=== PATIENT | female | born 1990 | race American Indian/Alaskan Native ===

== ENCOUNTER 2018-10-22 10:10 | Observation (INO) | payer MEDICAID ==
[2018-10-22] MEDS ORDERED: NACL 0.9% 1000 ML 1,000 ML IV SCH (17:00)
[2018-10-22 18:05] LABS: Eosinophils % (Auto) 0.3 % (0.0-4.3); Hemoglobin 6.1 gm/dl (10.1-14.3); Lymphocytes # (Auto) 2.2 K/mm3 (1.2-5.4); Lymphocytes % (Auto) 22.8 % (13.4-35.0); Mean Corpuscular HGB Conc 31 % (30-34); Monocytes # (Auto) 0.8 K/mm3 (0.0-0.8); Monocytes % (Auto) 7.9 % (0.0-7.3); Platelet Count 352 K/mm3 (140-440); Red Blood Count 3.16 M/mm3 (3.65-5.03); Red Cell Distribution Width 19.4 % (13.2-15.2)
[2018-10-22 18:17] LABS: Hematocrit 19.7 % (30.3-42.9); Mean Corpuscular Volume 62 fl (79-97)
[2018-10-22] MEDS ORDERED: NACL 0.9% 500 ML 500 ML IV SCH (18:19)
[2018-10-22] MEDS ORDERED: PEPCID PO ONE (22:00)
--- NOTE | 2018-10-22 22:19 | History and Physical Report ---
History of Present Illness Date of examination: 10/22/18 Date of admission: 10/22/18 17:12 Chief complaint: Sent from office for direct admit. History of present illness: 27 year old who was sent from office for direct admit due to need for blood tranfusion (severe anemia). Patient denies dizziness or lightheadedness; had an episode of dizziness last week but feels fine now. Patient denies chest pain or SOB. Patient reports active movement. She denies contractions, LOF, or VB. Patient receives care at [facility] and records are available. LMP 04/04/18. EDC 01/09/19. significant for the following: severe anemia, history of previous section, HSV 2 positive serology, abnormal pap. labs are as follows: O+, antibody screen negative, pap LSIL, rubella immune, RPR nonreactive, hepatitis B surface antigen negative, HIV negative, HSV 2 positive, varicella immune, gonorrhea negative, chlamydia negative, trichomonas negative, tetra screen negative, diabetes screen 110. 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 denies: chlamydia, gonorrhea, hepatitis B, hepatitis C, herpes, HIV, syphilis Family/Genetic History: hypertension, other (family history of autism) Social history: lives with family, full code, AND/DNR-allow natural . denies: smoking, alcohol abuse, prescription drug abuse, IV drug use - Obstetrical History Expected Date of Delivery: 01/09/19 Actual Gestation: 28 Week(s) 6 Day(s) : 3 Para: 2 Hx # Term Pregnancies: 2 Number of Pregnancies: 0 Spontaneous Abortions: 0 Induced : 0 Number of Living Children: 2 Medications and Allergies Allergies Allergy/AdvReac Type Severity Reaction Status Date / Time No Known Allergies Allergy Unverified 10/22/18 15:58 Home Medications Medication Instructions Recorded Confirmed Last Taken Type No Known Home Medications [No 10/22/18 10/22/18 Unknown History Reported Home Medications] Active Meds: Active Medications Sodium Chloride (Nacl 0.9% 1000 Ml) 1,000 mls @ 125 mls/hr IV DIRECT ERIC Sodium Chloride (Nacl 0.9% 500 Ml) 500 mls @ 0 mls/hr IV ONCE ERIC Stop: 10/23/18 06:00 Review of Systems Constitutional: no weakness Cardiovascular: no syncope, no lightheadedness, no shortness of breath Respiratory: no cough, no shortness of breath Gastrointestinal: no nausea, no vomiting Genitourinary: no vaginal bleeding, no leakage of fluid Neurological: no weakness - Vital Signs Vital signs: Vital Signs Temp 97.8 F 10/22/18 17:39 Temp Pulse Resp BP Pulse Ox 98.2 F 94 H 17 117/67 10/22/18 20:54 10/22/18 22:04 10/22/18 20:54 10/22/18 22:04 - Physical Exam Abdomen: Positive: normal appearance, soft. Negative: distention, tenderness, guarding, rigidity Uterus: Positive: normal size. Negative: tender - Obstetrical FHR: category 1 FHR comments: AGA Uterine Contraction Monitor Mode: External Uterine Contraction Pattern: Absent Results Result Diagrams: 10/22/18 17:50 Abnormal lab results 10/22/18 10/22/18 Range/Units 17:50 17:50 RBC 3.16 L (3.65-5.03) M/mm3 Hgb 6.1 L (10.1-14.3) gm/dl Hct 19.7 L* (30.3-42.9) % MCV 62 L (79-97) fl MCH 20 L (28-32) pg RDW 19.4 H (13.2-15.2) % [place] % (Auto) 7.9 H (0.0-7.3) % Crossmatch See Detail All other labs normal. Assessment and Plan A: at 28 weeks, 6 days. Severe anemia. P: Admit. Transfuse PRBCs per MD order.
[2018-10-23 06:51] LABS: Hematocrit 22.1 % (30.3-42.9); Hemoglobin 6.9 gm/dl (10.1-14.3)
[2018-10-23] MEDS ORDERED: NACL 0.9% 500 ML 500 ML IV NR (08:00)
[2018-10-23 13:17] VITALS: BP 97/57
--- NOTE | 2018-10-23 13:39 | Progress Note ---
Assessment and Plan - Patient Problems (1) 22 weeks gestation of Current Visit: Yes Status: Acute (2) Symptomatic anemia Current Visit: Yes Status: Acute Plan to address problem: Patient is S/P 2 units PRBCs. Will repeat CBC at 3:30 PM. If >8, will discharge home today. Subjective - Subjective Interval history: Patient is a 27 year old , LMP 04/04/18, EDC 01/09/19 at 28 weeks and 6 days gestation who was sent from office for direct admit due to need for blood transfusion due to severe anemia. Patient denies dizziness or lightheadedness; had an episode of dizziness last week but feels fine now. Patient denies chest pain or SOB. Patient reports active movement. She denies contractions, LOF, or VB. Patient receives care at [facility] and records are available. . significant for the following: severe anemia, history of previous section, HSV 2 positive serology, abnormal pap. labs are as follows: O+, antibody screen negative, pap LSIL, rubella immune, RPR nonreactive, hepatitis B surface antigen negative, HIV negative, HSV 2 positive, varicella immune, gonorrhea negative, chlamydia negative, trichomonas negative, tetra screen negative, diabetes screen 110. Objective - Vital Signs Vital Signs: Vital Signs - 12hr 10/23/18 10/23/18 10/23/18 01:34 01:49 02:04 Temperature Pulse Rate 82 76 78 Respiratory Rate Blood Pressure 88/54 96/56 101/55 O2 Sat by Pulse Oximetry 10/23/18 10/23/18 10/23/18 02:19 02:34 07:52 Temperature Pulse Rate 69 72 85 Respiratory Rate Blood Pressure 97/52 94/50 104/60 O2 Sat by Pulse Oximetry 10/23/18 10/23/18 10/23/18 08:00 11:02 11:07 Temperature 97.8 F Pulse Rate 91 H 94 H Respiratory 16 Rate Blood Pressure 110/58 103/56 O2 Sat by Pulse 98 98 Oximetry 10/23/18 10/23/18 10/23/18 11:20 11:21 11:22 Temperature 97.5 F L Pulse Rate 106 H 103 H 92 H Respiratory 16 Rate Blood Pressure 105/56 107/55 O2 Sat by Pulse 99 98 Oximetry 10/23/18 10/23/18 10/23/18 11:25 11:27 11:29 Temperature Pulse Rate 94 H 98 H 86 Respiratory Rate Blood Pressure 109/57 104/60 O2 Sat by Pulse 99 Oximetry 10/23/18 10/23/18 10/23/18 11:30 11:32 11:35 Temperature 97.6 F Pulse Rate 94 H 93 H 94 H Respiratory 18 Rate Blood Pressure 104/56 104/56 105/56 O2 Sat by Pulse 98 98 Oximetry 10/23/18 10/23/18 10/23/18 11:36 11:37 11:40 Temperature 97.6 F 97.7 F Pulse Rate 92 H 96 H 94 H Respiratory 26 H 18 Rate Blood Pressure 105/56 124/58 124/58 O2 Sat by Pulse 98 98 Oximetry 10/23/18 10/23/18 10/23/18 11:42 11:45 11:47 Temperature 97.8 F Pulse Rate 92 H 92 H 88 Respiratory 17 Rate Blood Pressure 110/58 110/58 106/60 O2 Sat by Pulse 98 Oximetry 10/23/18 10/23/18 10/23/18 11:50 11:52 11:55 Temperature Pulse Rate 93 H 90 96 H Respiratory Rate Blood Pressure 109/62 O2 Sat by Pulse 98 97 Oximetry 10/23/18 10/23/18 10/23/18 11:57 12:00 12:02 Temperature 97.8 F Pulse Rate 103 H 98 H 94 H Respiratory 17 Rate Blood Pressure 112/60 112/60 108/58 O2 Sat by Pulse 98 Oximetry 10/23/18 10/23/18 10/23/18 12:05 12:07 12:10 Temperature Pulse Rate 93 H 103 H 97 H Respiratory Rate Blood Pressure 104/61 O2 Sat by Pulse 97 98 Oximetry 10/23/18 10/23/18 10/23/18 12:12 12:15 12:20 Temperature 97.8 F Pulse Rate 92 H 86 97 H Respiratory 18 Rate Blood Pressure 109/62 108/62 O2 Sat by Pulse 98 97 Oximetry 10/23/18 10/23/18 10/23/18 12:25 12:30 12:35 Temperature 97.8 F Pulse Rate 94 H 90 97 H Respiratory 18 Rate Blood Pressure 117/65 O2 Sat by Pulse 98 98 98 Oximetry 10/23/18 10/23/18 10/23/18 12:40 12:45 12:50 Temperature Pulse Rate 90 79 93 H Respiratory Rate Blood Pressure 111/61 O2 Sat by Pulse 98 99 98 Oximetry 10/23/18 10/23/18 10/23/18 12:55 13:00 13:05 Temperature Pulse Rate 88 88 82 Respiratory Rate Blood Pressure 110/57 O2 Sat by Pulse 97 97 97 Oximetry 10/23/18 10/23/18 10/23/18 13:10 13:15 13:20 Temperature Pulse Rate 84 106 H 82 Respiratory Rate Blood Pressure 97/57 O2 Sat by Pulse 97 97 97 Oximetry 10/23/18 13:25 Temperature Pulse Rate 74 Respiratory Rate Blood Pressure O2 Sat by Pulse 99 Oximetry - Exam Cardiovascular: Normal S1, Normal S2 Lungs: Clear to auscultation Vulva: both: normal FHR: category 1 Uterine Contraction Monitor Mode: External Deep Tendon Reflex Grade: Normal +2 - Labs Labs: Abnormal Labs 10/22/18 10/22/18 10/23/18 17:50 17:50 06:41 RBC 3.16 L Hgb 6.1 L 6.9 L Hct 19.7 L* 22.1 L MCV 62 L MCH 20 L RDW 19.4 H Nash % (Auto) 7.9 H Crossmatch See Detail Laboratory Results - last 24 hr 10/22/18 10/22/18 10/23/18 17:50 17:50 06:41 WBC 9.8 RBC 3.16 L Hgb 6.1 L 6.9 L Hct 19.7 L* 22.1 L MCV 62 L MCH 20 L MCHC 31 RDW 19.4 H Plt Count 352 Lymph % (Auto) 22.8 Nash % (Auto) 7.9 H Eos % (Auto) 0.3 Baso % (Auto) 0.0 Lymph # 2.2 Nash # 0.8 Eos # 0.0 Baso # 0.0 Seg Neutrophils % 69.0 Seg Neutrophils # 6.7 Blood Type O POSITIVE Antibody Screen Negative Crossmatch See Detail - Results US- obstetric: report reviewed
--- NOTE | 2018-10-23 13:54 | Discharge Summary ---
Providers - Providers Date of Admission: 10/22/18 17:12 Date of discharge: 10/23/18 Attending physician: MICHELLE COPELAND MD Primary care physician: SPEEDOMETER MECHANIC Hospitalization Reason for admission: other (Symptomatic anemia) Delivery: other (Blood transfusion) Discharge diagnosis: other (symptomatic anemia, S/P blood transfusion.) Hospital course: Patient is a 27 year old , LMP 04/04/18, EDC 01/09/19 at 28 weeks and 6 days gestation who was sent from office for direct admit due to need for blood transfusion due to severe anemia. Patient denies dizziness or lightheadedness; had an episode of dizziness last week but feels fine now. Patient denies chest pain or SOB. Patient reports active movement. She denies contractions, LOF, or VB. Patient receives care at [facility] and records are available. . significant for the following: severe anemia, history of previous section, HSV 2 positive serology, abnormal pap. labs are as follows: O+, antibody screen negative, pap LSIL, rubella immune, RPR nonreactive, hepatitis B surface antigen negative, HIV negative, HSV 2 positive, varicella immune, gonorrhea negative, chlamydia negative, trichomonas negative, tetra screen negative, diabetes screen 110. Condition at discharge: Stable Disposition: DC-01 TO HOME OR SELFCARE - Discharge Diagnoses (1) 22 weeks gestation of Status: Acute (2) Symptomatic anemia Status: Acute Plan - Provider Discharge Summary Activity: routine Diet: routine Instructions: routine Additional instructions: [] Smoking cessation referral if applicable(refer to patient education folder for contact #) [] Refer to [facility] Booklet Call your doctor immediately for: * Fever > 100.5 * Heavy vaginal bleeding ( >1 pad per hour) * Severe persistent headache * Shortness of breath * Reddened, hot, painful area to leg or breast * Drainage or odor from incision. * Keep incision clean and dry at all times and follow doctor's instructions regarding bathing/showering - Follow up plan Follow up: PRIMARY CARE, [Primary Care Provider] - 7 Days
[2018-10-23 15:27] LABS: Hematocrit 27.8 % (30.3-42.9); Hemoglobin 8.7 gm/dl (10.1-14.3); Mean Corpuscular HGB Conc 31 % (30-34); Platelet Count 308 K/mm3 (140-440); Red Blood Count 4.01 M/mm3 (3.65-5.03)
[2018-10-23 15:32] LABS: Mean Corpuscular Volume 69 fl (79-97); Red Cell Distribution Width 24.4 % (13.2-15.2)
[2018-10-23] MEDS ORDERED: PEPCID PO ONE (17:00)
== END 2018-10-23 17:00 | disposition home or self-care (01) ==
LOC: 3A 10:10 → UNDOADMOB 10:10 → LD 17:12
PROVIDERS: ADMIT Obstetrics & Gynecology; ATTEND Obstetrics & Gynecology
DX: O99.013 Anemia complicating pregnancy, third trimester (principal); Z3A.28 28 weeks gestation of pregnancy
CPT/HCPCS: 36415; 85014; 85018; 85025; 85027; 86850; 86900; 86901; 86920; G0378; G0379; J7040; P9016; 36430

== ENCOUNTER 2019-01-03 08:55 | Inpatient (IN) | payer MEDICAID ==
[2019-01-03] MEDS ORDERED: BICITRA ORAL LIQD 30ML PO NR (09:30)
[2019-01-03] MEDS ORDERED: FAMOTIDINE 20 MG/2 ML INJ IV NR (09:30)
[2019-01-03] MEDS ORDERED: METOCLOPRAMIDE 10 MG/2 ML INJ IV NR (09:30)
[2019-01-03] MEDS ORDERED: LACTATED RINGERS 2,000 ML ONE (09:41)
[2019-01-03] MEDS ORDERED: LACTATED RINGERS 1,000 ML IV SCH (10:00)
[2019-01-03] MEDS ORDERED: ceFAZolin/Water 2 GM/20 ML 2 GM/20 ML SYRINGE IV NR (10:00)
[2019-01-03] MEDS ORDERED: SODIUM CHLORIDE 0.9% 500 ML 500 ML IV NR (10:00)
[2019-01-03] MEDS ORDERED: OXYTOCIN 20 UNIT/1000ML DRIP 20 UNITS/1,000 ML BAG IV SCH ×2 (10:00→18:00)
[2019-01-03 10:16] LABS: Basophils % (Auto) 0.3 % (0.0-1.8); Eosinophils % (Auto) 0.4 % (0.0-4.3); Hematocrit 30.4 % (30.3-42.9); Hemoglobin 9.4 gm/dl (10.1-14.3); Lymphocytes # (Auto) 1.9 K/mm3 (1.2-5.4); Lymphocytes % (Auto) 19.4 % (13.4-35.0); Mean Corpuscular HGB Conc 31 % (30-34); Monocytes # (Auto) 1.1 K/mm3 (0.0-0.8); Monocytes % (Auto) 10.6 % (0.0-7.3); Platelet Count 352 K/mm3 (140-440); Red Blood Count 4.47 M/mm3 (3.65-5.03)
[2019-01-03 10:21] LABS: Mean Corpuscular Volume 68 fl (79-97); Red Cell Distribution Width 21.3 % (13.2-15.2)
--- NOTE | 2019-01-03 11:58 | History and Physical Report ---
History of Present Illness Date of examination: 01/03/19 Date of admission: 01/03/19 08:55 Chief complaint: Elective Repeat Section, declines Bilateral Tubal Ligation History of present illness: 28yo [id number] at 39+2/7 weeks here for repat section. She is without complaint. GFM,no LOF, no VB. 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 Family/Genetic History: none Social history: single, lives with family - Obstetrical History Expected Date of Delivery: 01/09/19 Actual Gestation: 39 Week(s) 1 Day(s) : 3 Para: 2 Medications and Allergies Allergies Allergy/AdvReac Type Severity Reaction Status Date / Time No Known Allergies Allergy Verified 01/03/19 09:26 Home Medications Medication Instructions Recorded Confirmed Last Taken Type No Known Home Medications [No 10/22/18 01/03/19 Unknown History Reported Home Medications] Active Meds: Active Medications Citric Acid/Sodium Citrate (Bicitra) 30 ml PO ONCE NR Stop: 01/03/19 16:00 Famotidine (Pepcid) 20 mg IV ONCE NR Stop: 01/03/19 16:00 Oxytocin/Sodium Chloride (Pitocin/Ns 20 Unit/1000ml Drip) 20 units in 1,000 mls @ 0 mls/hr IV TITR ERIC Lactated Ringer's (Lactated Ringers) 1,000 mls @ 2,250 mls/hr IV PREOP ERIC Stop: 01/04/19 10:27 Last Admin: 01/03/19 09:40 Dose: 2,250 mls/hr Documented by: Cefazolin Sodium (Ancef/Sterile Water 2 Gm/20 Ml) 2 gm in 20 mls @ 80 mls/hr IV PREOP NR; Protocol Stop: 01/03/19 16:00 Sodium Chloride (Nacl 0.9% 500 Ml) 500 mls @ 0 mls/hr IV ONCE NR Stop: 01/03/19 17:00 Metoclopramide HCl (Reglan) 10 mg IV ONCE NR Stop: 01/03/19 16:00 Review of Systems All systems: negative (good movement, occasional contractions, no loss of fluid or vaginal bleeding) - Vital Signs Vital signs: Vital Signs Pulse Pulse Ox 76 100 01/03/19 09:12 01/03/19 09:12 Temp Pulse Resp BP Pulse Ox 98 F 94 H 16 129/72 100 01/03/19 11:28 01/03/19 10:45 01/03/19 11:28 01/03/19 10:27 01/03/19 10:45 - Physical Exam Breasts: Positive: deferred Cardiovascular: Regular rate Lungs: Positive: Clear to auscultation Abdomen: Positive: normal appearance, normal bowel sounds Genitourinary (Female): Positive: normal external genitalia, normal perenium Cervix: Positive: other (patient declined) Uterus: Positive: normal size Extremities: Positive: normal Deep Tendon Reflex Grade: Normal +2 - Obstetrical FHR: category 1 ([id number] baseline, +ve accelerations, moderate variability) Results Result Diagrams: 01/03/19 09:40 Abnormal lab results 01/03/19 01/03/19 Range/Units 09:40 09:40 Hgb 9.4 L (10.1-14.3) gm/dl MCV 68 L (79-97) fl MCH 21 L (28-32) pg RDW 21.3 H (13.2-15.2) % [place] % (Auto) 10.6 H (0.0-7.3) % [place] # 1.1 H (0.0-0.8) K/mm3 Crossmatch See Detail All other labs normal. 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
--- NOTE | 2019-01-03 13:59 | Anesthesia Consultation ---
Anesthesia Consult and Med Hx Date of service: 01/03/19 - Airway Anesthetic Teeth Evaluation: Good ROM Head & Neck: Adequate Mental/Hyoid Distance: Adequate Mallampati Class: Class II Intubation Access Assessment: Probably Good - Pulmonary Exam CTA: Yes - Cardiac Exam Cardiac Exam: RRR - Pre-Operative Health Status ASA Pre-Surgery Classification: ASA2 Proposed Anesthetic Plan: Spinal - Pulmonary Hx Asthma: No COPD: No Hx Pneumonia: No - Cardiovascular System Hx Hypertension: No - Central Nervous System Hx Seizures: No Hx Psychiatric Problems: No - Endocrine Hx Renal Disease: No Hx End Stage Renal Disease: No Hx Hypothyroidism: No Hx Hyperthyroidism: No - Hematic Hx Anemia: No Hx Sickle Cell Disease: No - Other Systems Hx Alcohol Use: No
--- NOTE | 2019-01-03 13:59 | Anesthesia Day of Surgery ---
Anesthesia Day of Surgery - Day of Surgery Patient Examined: Yes Patient H&P Reviewed: Yes Patient is NPO: Yes
[2019-01-03] MEDS ORDERED: WATER FOR IRRIG STERILE 1,500 ML BOTTLE IR ONE (15:30)
[2019-01-03] MEDS ORDERED: SODIUM CHLORIDE 0.9% IRR 1,500 ML BOTTLE IR ONE (15:30)
[2019-01-03] MEDS ORDERED: PHENYLEPHRINE/NS 1,000 MCG/10 ML SYRINGE (OR USE) IV ONE (15:34)
[2019-01-03] MEDS ORDERED: ONDANSETRON 4 MG/2 ML INJ ONE (15:34)
[2019-01-03] MEDS ORDERED: BUPIVACAINE/PF (0.5%) 5 MG/1 ML 30 ML VIAL INFILTRATI ONE (15:34)
[2019-01-03] MEDS ORDERED: OXYTOCIN 10 UNIT/1 ML INJ ONE (15:34)
[2019-01-03] MEDS ORDERED: DEXMEDETOMIDINE 200 MCG/2 ML VIAL IV ONE (15:34)
[2019-01-03] MEDS ORDERED: HETASTARCH 6% 500 ML IV ONE (16:20)
--- NOTE | 2019-01-03 16:37 | Procedure Note ---
OB Delivery Note - Delivery Date of Delivery: 01/03/19 Surgeon: TYLER RUBALCAVA Estimated blood loss: 1000cc - Section Postop diagnosis: same section procedure: repeat low transverse Disposition: PACU Complications: none Narrative: Preoperative diagnosis: IUP at 39+2/7 weeks, repeat section declines TOLAC Postoperative diagnosis: same Procedure: Elective Repeat Low Transverse section via Pfannenstiel incision Surgeon: Dr Tyler Rubalcava Assist: Scrub Anesthesia: Spinal Findings: viable male, 3249gms and 8/9. Normal Uterus, tubes and ovaries bilaterally. Complications:none Drains: [place] to gravity EBL: 1000mL IV Fluids: 1000ml Urine Output:350ml Procedure: Patient gave informed consent in OB triage. All questions and concerns addressed. R/B/C reviewed. She was taken to the OR where excellent anesthesia was confirmed. She was placed in the dorsal supine position with a leftward tilt. She was prepped and draped in a sterile fashion. A time out was verified. An Georgie clamp was used to assure adequate analgesia. A Pfannenstiel skin incision was made, taken down through the underlying fascia sharply and extended laterally with curved Blank scissors. The superior and inferior aspect of the fascial incision was grasped with Veronica clamps and the rectus muscles dissected off sharply. The abdomen was entered sharply in the midline and extended laterally and inferiorly sharply with good visualization of the underlying structures.A bladder blade was inserted. The uterine incision was made sharply with a scalpel, taken down to the amnion and extended inferiorly and superiorly bluntly. The bladder blade removed and the baby delivered atraumatically. No nuchal cord, spontaneous cry at delivery. Cord clamped and cut and baby handed to waiting roll forming machine set up mechanic staff. An intact placenta with three vessel cord delivered manually. The uterus cleared of all clots and debris. The uterus was exteriorized. The uterine incision closed with 2 layers of 0-Vicryl. The abdomen was irrigated with warm normal saline and the uterus placed back into the abdomen. A second look at the uterine incision assured excellent hemostasis. A procoagulant was applied to the uterine incision. The peritoneum was closed with 3-0 Vicryl, the fascia closed with 0-Vicryl in the usual fa shion, the rectus muscles approximated with 3-0 Vicryl and the underlying structures closed with interrupted suture of O-Vicryl. The skin closed with roxana and a pressure dressing applied. All sponge and needle counts correctx3. Mom and baby stable to . EBL 1000ml. Urine output confirmed clear and adequate at completion of procedure. Daivd SALAS
[2019-01-03] MEDS ORDERED: PROMETHAZINE 25 MG RECT SUPP PR PRN ×2 (16:52→17:20)
[2019-01-03] MEDS ORDERED: PROMETHAZINE 25 MG TAB PO PRN (16:52)
[2019-01-03] MEDS ORDERED: ONDANSETRON 4 MG/2 ML INJ IV PRN ×2 (16:52→17:20)
[2019-01-03] MEDS ORDERED: NalbUPHINE 10 MG/1 ML INJ IV PRN (16:52)
--- NOTE | 2019-01-03 16:52 | Post Anesthesia Evaluation ---
- Post Anesthesia Evaluation Patient Participated: Yes Airway Patent: Yes Stable Respiratory Function: Yes Nausea/Vomiting: No Temp > 96.8F: Yes Pain Manageable: Yes Adequeate Hydration: Yes Anesthesia Complications: No Block Receding Appropriately: Yes
[2019-01-03] MEDS ORDERED: ACETAMINOPHEN 500 MG TAB PO SCH (17:00)
[2019-01-03] MEDS ORDERED: LANOLIN/ZINC/DIMETHICONE (LANSINOH) 7 GM TP PRN (17:20)
[2019-01-03] MEDS ORDERED: MORPHINE 2 MG/1 ML INJ IV PRN (17:20)
[2019-01-03] MEDS ORDERED: NALOXONE 0.4 MG/1 ML INJ IV PRN (17:20)
[2019-01-03] MEDS ORDERED: MORPHINE 4 MG/1 ML INJ IV PRN (17:20)
[2019-01-03] MEDS ORDERED: WITCH HAZEL/ GLYCERIN PAD TP PRN (17:20)
[2019-01-03] MEDS ORDERED: KETOROLAC 30 MG/1 ML INJ IV PRN ×2 (17:20)
[2019-01-03] MEDS ORDERED: ACETAMINOPHEN 325 MG TAB PO PRN (17:20)
[2019-01-03] MEDS ORDERED: MAGNESIUM HYDROXIDE (MOM) ORAL LIQD UDC PO PRN (17:20)
[2019-01-03] MEDS: IBUPROFEN 800 MG TAB PO SCH (19:00)
[2019-01-03] MEDS: ACETAMINOPHEN 325 MG TAB PO SCH ×2 (23:20→23:30)
[2019-01-03] MEDS ORDERED: ACETAMINOPHEN 325 MG TAB PO SCH (23:45)
[2019-01-04] MEDS: IBUPROFEN 800 MG TAB PO SCH ×2 (01:00→06:36)
[2019-01-04] MEDS: oxyCODONE /ACETAMINOPHEN 5-325MG TAB PO PRN ×3 (04:10→22:12)
[2019-01-04] MEDS: ACETAMINOPHEN 325 MG TAB PO SCH (04:11)
[2019-01-04 05:58] LABS: Hemoglobin 6.1 gm/dl (10.1-14.3)
[2019-01-04 06:03] LABS: Hematocrit 19.9 % (30.3-42.9)
[2019-01-04] MEDS ORDERED: diphenhydrAMINE 50 MG/ML VIAL IV ONE (06:58)
[2019-01-04] MEDS ORDERED: SODIUM CHLORIDE 0.9% 500 ML 500 ML IV SCH (07:00)
[2019-01-04] MEDS ORDERED: IRON DEXTRAN COMPLEX 100 MG/2 ML INJ IM NR (10:00)
--- NOTE | 2019-01-04 10:51 | Progress Note ---
Assessment and Plan - Patient Problems (1) S/P repeat low transverse Current Visit: Yes Status: Acute Plan to address problem: Continue routine PP orders Keep dressing dry and intact Anticipate d/c home in 48 hrs if stable (2) Anemia Current Visit: Yes Status: Acute Qualifiers: Anemia type: other cause Other causes of anemia: acute posthemorrhagic Qualified Code(s): D62 - Acute posthemorrhagic anemia Plan to address problem: 2 units of PRBCs, 1 unit infusing now Repeat H/H 4 hrs post blood transfusion and in am Ferrous sulfate 325mg po BID Subjective - Subjective Date of service: 01/04/19 Principal diagnosis: POD # 1, S/P repeat C/S; Anemia Interval history: See admission H & P; OB operative note and PP progress note Patient reports: appetite normal, voiding normally, pain well controlled (with medication), flatus, ambulating normally, no bowel movement : doing well, bottle feeding Objective - Vital Signs Latest vital signs: Vital Signs Temp Pulse Resp BP BP Pulse Ox 01/04/19 10:15 99.2 F 90 20 113/69 99 01/04/19 09:40 98.7 F 87 16 106/56 99 01/04/19 09:10 99 F 92 H 18 110/57 99 01/04/19 08:40 98.7 F 91 H 20 97/54 98 01/04/19 08:10 98.8 F 82 20 108/53 99 01/04/19 07:40 99.2 F 98 H 20 101/57 99 01/04/19 07:39 99.2 F 98 H 20 101/57 99 01/04/19 07:24 98.9 F 93 H 18 105/59 99 01/04/19 06:36 18 01/04/19 05:10 98.4 F 95 H 18 93/52 98 01/04/19 04:11 18 01/04/19 04:10 18 01/04/19 00:50 97.9 F 81 18 109/67 100 01/03/19 21:07 98.0 F 20 106/59 01/03/19 19:38 18 01/03/19 18:10 97.3 F L 67 20 117/62 99 01/03/19 17:45 72 14 123/82 100 01/03/19 17:30 66 11 L 119/79 99 01/03/19 17:15 53 L 11 L 113/73 99 01/03/19 17:00 56 L 12 97/57 99 01/03/19 16:55 64 13 93/48 98 01/03/19 16:50 97.5 F L 70 12 83/41 98 01/03/19 16:45 97.5 F L 70 12 101/47 98 01/03/19 11:28 98 F 16 Intake and Output 01/03/19 01/04/19 01/04/19 23:59 07:59 15:59 Intake Total 2220 360 0 Output Total 1100 700 Balance 1120 -340 0 Intake: IV 2100 Intake, Free Water 120 360 Blood Product 0 0 Leukoreduced Red Blood 0 0 Cells Unit [id number] Leukoreduced Red Blood 0 Cells Unit [id number] Output: Urine 1100 700 Uretheral (Cardoso) 700 400 Void 300 Other: Total, Output Amount 300 Estimated Blood Loss 1,000 - Exam Breasts: Present: normal Cardiovascular: Present: Regular rate Lungs: Present: Normal air movement Abdomen: Present: soft, tenderness Uterus: Present: firm, fundal height at umbilicus Extremities: Present: normal Deep Tendon Reflex Grade: Normal +2 Incision: Present: dressed (no shawdow drainage or bleeding noted) - Labs Labs: Abnormal lab results 01/03/19 01/04/19 Range/Units 09:40 05:40 Hgb 6.1 L D (10.1-14.3) gm/dl Hct 19.9 L* D (30.3-42.9) % Crossmatch See Detail
[2019-01-04] MEDS: IBUPROFEN 800 MG TAB PO PRN (15:45)
[2019-01-04 16:50] LABS: Hematocrit 24.8 % (30.3-42.9); Hemoglobin 7.7 gm/dl (10.1-14.3)
[2019-01-04] MEDS ORDERED: SIMETHICONE 80 MG CHEW TAB PO PRN (17:05)
[2019-01-05] MEDS: IBUPROFEN 800 MG TAB PO PRN (03:18)
[2019-01-05 04:42] LABS: Hemoglobin 7.9 gm/dl (10.1-14.3)
[2019-01-05] MEDS ORDERED: FERROUS SULFATE 325 MG TAB PO SCH (10:00)
--- NOTE | 2019-01-05 10:26 | Progress Note ---
Assessment and Plan A: POD #2 Anemia P: Follow Routine PostOp Orders Continue FESO4 D/C Home today per patient request RTO in One Week Subjective - Subjective Date of service: 01/05/19 Principal diagnosis: POD # 1, S/P repeat C/S; Anemia Patient reports: appetite normal, voiding normally, pain well controlled, flatus, ambulating normally [place]: doing well, bottle feeding Objective - Vital Signs Latest vital signs: Vital Signs Temp Pulse Resp BP BP Pulse Ox 01/05/19 07:45 98.2 F 76 18 116/62 01/05/19 00:00 98.6 F 73 18 119/67 01/04/19 16:24 98.6 F 100 H 18 120/70 01/04/19 13:33 18 01/04/19 12:30 98.6 F 99 H 18 113/62 99 01/04/19 12:00 98.1 F 98 H 18 118/65 01/04/19 11:30 98.6 F 107 H 20 115/58 99 01/04/19 11:00 99 F 98 H 20 118/61 99 01/04/19 10:30 98.7 F 98 H 20 121/67 100 Intake and Output 01/04/19 01/05/19 01/05/19 22:59 06:59 14:59 Intake Total 480 120 Balance 480 120 Intake: Oral 480 120 Other: Total, Intake Amount 480 120 # Voids Void 1 1 - Exam Breasts: Present: normal Cardiovascular: Present: Regular rate Lungs: Present: Clear to auscultation, Normal air movement Abdomen: Present: normal appearance, soft, normal bowel sounds Uterus: Present: normal, firm, fundal height at umbilicus Extremities: Present: normal Incision: Present: normal, dry, intact - Labs Labs: Abnormal lab results 01/03/19 01/04/19 01/05/19 Range/Units 09:40 16:16 04:09 Hgb 7.7 L 7.9 L (10.1-14.3) gm/dl Hct 24.8 L 25.0 L (30.3-42.9) % Crossmatch See Detail
--- NOTE | 2019-01-05 10:27 | Discharge Summary ---
Providers - Providers Date of Admission: 01/03/19 08:55 Date of discharge: 01/05/19 Attending physician: TYLER RUBALCAVA MD Primary care physician: TYLER RUBALCAVA MD Hospitalization Reason for admission: section Delivery: Procedure: repeat low transverse Episiotomy: none Laceration: none Incision: normal, dry, intact Other procedures: none complications: none Discharge diagnosis: IUP at term delivered [place] baby: male Condition at discharge: Good Disposition: DC-01 TO HOME OR SELFCARE Plan - Discharge Medications Prescriptions: Ibuprofen [Motrin] 600 mg PO Q8H PRN #30 tablet PRN Reason: Pain oxyCODONE /ACETAMINOPHEN [Percocet 5/325] 1 tab PO Q4HR PRN #20 tab PRN Reason: Pain , Severe (7-10) - Provider Discharge Summary Activity: routine, no sex for 6 weeks, no heavy lifting 4 weeks, no strenuous exercise Diet: routine Instructions: routine Additional instructions: [] Smoking cessation referral if applicable(refer to patient education folder for contact #) [] Refer to [facility] Booklet Call your doctor immediately for: * Fever > 100.5 * Heavy vaginal bleeding ( >1 pad per hour) * Severe persistent headache * Shortness of breath * Reddened, hot, painful area to leg or breast * Drainage or odor from incision. * Keep incision clean and dry at all times and follow doctor's instructions regarding bathing/showering - Follow up plan Follow up: TYLER RUBALCAVA MD [Primary Care Provider] - 7 Days
[2019-01-05 13:34] VITALS: BP 127/74
== END 2019-01-05 13:45 | disposition home or self-care (01) | DRG 765 ==
LOC: APU 08:55 → OB 18:21
PROVIDERS: ADMIT Obstetrics & Gynecology; ATTEND Obstetrics & Gynecology
PROC: 10D00Z1 Extraction of Products of Conception, Low, Open Approach (ICD-10-PCS; principal; 2019-01-03)
PROC: 30233N1 Transfusion of Nonautologous Red Blood Cells into Peripheral Vein, Percutaneous Approach (ICD-10-PCS; 2019-01-04)
DX: O34.219 Maternal care for unspecified type scar from previous cesarean delivery (principal); D62 Acute posthemorrhagic anemia; Z3A.39 39 weeks gestation of pregnancy; Z37.0 Single live birth; O90.81 Anemia of the puerperium
CPT/HCPCS: 36415; 85014; 85018; 85025; 86592; 86850; 86900; 86901; 86920; 88307; G0378; J0690; J1200; J1750; J1885; J2270; J2370; J2405; J2590; J2765; J3490; J7040; J7120; P9016